=== PATIENT | male | born 1955 | race Caucasian/White ===

== ENCOUNTER 2018-05-01 20:46 | Inpatient (IN) | payer OTHER ==
[~2018-05-01] VITALS: Ht 172.7 cm; Wt 108.9 kg
[2018-05-01 20:49] VITALS: BP 168/85
[2018-05-01] MEDS ORDERED: OMEPRAZOLE40 MG PO (20:53)
[2018-05-01] MEDS ORDERED: FENOFIBRATE160 MG PO (20:54)
[2018-05-01] MEDS ORDERED: ALLOPURINOL 10100 M1 (20:54)
[2018-05-01 21:10] LABS: ABSOLUTE BASOPHILS 0.1 thou/uL (0.0-0.2); ABSOLUTE EOSINOPHILS 0.3 thou/uL (0.0-0.7); ABSOLUTE MONOCYTES 0.9 thou/uL (0.0-1.2); ABSOLUTE NEUTROPHILS 4.4 thou/uL (1.6-8.1); EOSINOPHILS 3.9 %; HEMATOCRIT 40.4 % (42.0-52.0); HEMOGLOBIN 13.5 gm/dL (14.0-18.0); LYMPHOCYTES 15.1 %; MCH 27.7 pg (26.0-34.0); MCHC 33.5 g/dL (28.0-37.0); MCV 82.7 fL (80.0-100.0); MONOCYTES 13.4 %; MPV 8.8 fl. (7.2-11.1); NUCLEATED RBCS 0 /100WBC; PLATELET COUNT* 169 thou/uL (150-400); POLYS 66.6 %; RBC 4.88 mil/uL (4.50-6.00); RDW-CV 15.1 % (10.5-14.5); WBC 6.6 thou/uL (4.0-11.0)
[2018-05-01 21:21] LABS: ANION GAP 9 mmol/L (7-16); BUN 17 mg/dL (7-18); CALCIUM 9.2 mg/dL (8.5-10.1); CHLORIDE 105 mmol/L (98-107); CO2 25 mmol/L (21-32); CREATININE 1.4 mg/dL (0.6-1.3); GLUCOSE 113 mg/dL (70-99); POTASSIUM 4.2 mmol/L (3.5-5.1); SODIUM 139 mmol/L (136-145)
[2018-05-01 21:26] LABS: APTT 23.1 Seconds (25.0-31.3)
[2018-05-01 21:31] LABS: ALBUMIN 3.7 g/dL (3.4-5.0); ALKALINE PHOSPHATASE 79 U/L (46-116); LIPASE 104 U/L (73-393); NT-PRO BRAIN NAT PEPTIDE 70 pg/mL (<300); SGOT 46 U/L (15-37); SGPT 87 U/L (30-65); TOTAL BILIRUBIN 0.4 mg/dL (<0.1-1.0); TOTAL PROTEIN 6.9 g/dL (6.4-8.2); TROPONIN-I LEVEL <0.06 ng/mL (<0.06)
[2018-05-02 01:20] VITALS: BP 128/74
[2018-05-02 01:50] VITALS: BP 136/84
[2018-05-02 05:33] VITALS: BP 115/63
--- NOTE | 2018-05-02 07:40 | NUR ---
PT TO FLOOR APROX 0150N AND ASSUMED CARE. A&O X4 CALM COOPERITVE. PT REPORTS PAIN A IRRITATION AND RATES IT AT A 2. RA. NPO. UP ADLIB. SB ON THE MONITOR. VITALS WNL. SEE. MAR. SEE CHARTING. HOURLY ROUNDING FOR SAFETY.
[2018-05-02 08:00] VITALS: BP 146/67
--- NOTE | 2018-05-02 10:35 | NUR ---
MET WITH PT AND TO DISCUSS HOME SITUATION/DC PLANNING. PT LIVES [place] . 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 DOESN'T USE ANY EQUIPIMENT. STATES IS HAVING SOME TESTS TODAY. DENIES ANY DC NEEDS. WILL FOLLOW
[2018-05-02 16:20] VITALS: BP 134/63
--- NOTE | 2018-05-02 17:05 | NUR ---
PT HAS RESTED IN HIS ROOM THIS SHIFT. PT HAD STRESS TEST TODAY. RESULTS PENDING. HE HAS HAD NO C/O PAIN OR DISCOMFORT. ASSUMED CARE OF PT THIS AM ASSESSED AND DOCUMENTED. SEE CHART. EDUCATION GIVEN ON DEMAND. HOURLY ROUNDING COMPLETE.
[2018-05-02] MEDS ORDERED: NORVASC10 MG PO (17:45)
--- NOTE | 2018-05-02 18:20 | 2DMMODE ---
[place] [address] 2 D/M-MODE ECHOCARDIOGRAM Name: DEANN FRANKS Room: [address] IN [facility]#: [id number] Admission: 05/01/18 Attend Phys: Saroj Banegas Discharge: Date of : 57 Date of Service: 05/02/18 1820 Report #: [id number] THIS REPORT FOR: //name// APPROVED REPORT Study performed: 05/02/2018 13:49:24 EXAM: Comprehensive 2D, Doppler, and color-flow Echocardiogram Patient Location: In-Patient Room #: [facility] Status: routine BSA: 2.21 HR: 56 bpm BP: 115/63 mmHg Rhythm: NSR Other Information Study Quality: Good Indications Chest Pain 2D Dimensions LVEF(%): 70.49 (>50%) IVSd: 12.15 (7-11mm) LVOT Diam: 22.07 (18-24mm) LVDd: 46.21 mm PWd: 11.32 (7-11mm) Ascending Ao: 28.76 (22-36mm) LVDs: 27.80 (25-40mm) Aortic Root: 29.47 mm Eller's LVEF: 70.49 % Volumes Left Atrial Volume (Systole) LA ESV Index: 31.60 mL/m2 Aortic Valve AoV Peak Aguila.: 1.19 m/s AO Peak Gr.: 5.62 mmHg LVOT Max P.69 mmHg AO Mean Gr.: 3.28 mmHg LVOT Mean P.86 mmHg LVOT Max V: 0.96 m/s AO V2 VTI: 24.56 cm LVOT Mean V: 0.63 m/s NILDA (VTI): 3.43 cm2 LVOT V1 VTI: 22.06 cm Mitral Valve E/A Ratio: 1.55 [place] [address] 2 D/M-MODE ECHOCARDIOGRAM Name: DEANN FRANKS Room: [address] IN ..#: [id number] Admission: 05/01/18 Attend Phys: Saroj Banegas Discharge: Date of : 57 Date of Service: 05/02/18 1820 Report #: [id number] MV Decel. Time: 182.33 ms MV E Max Aguila.: 0.67 m/s MV PHT: 52.88 ms MVA (PHT): 4.16 cm2 TDI E/Lateral E': 4.79 E/Medial E': 5.58 Medial E' Aguila.: 0.12 m/s Lateral E' Aguila.: 0.14 m/s Pulmonary Valve PV Peak Aguila.: 1.26 m/s PV Peak Gr.: 6.34 mmHg Tricuspid Valve TR Peak Gr.: 24.38 mmHg RVSP: 29.00 mmHg Left Ventricle The left ventricle is normal size. There is normal LV segmental wall motion. There is normal left ventricular wall thickness. Left ventricular systolic function is normal. The left ventricular ejection fraction is within the normal range. LVEF is 60%. The left ventricular diastolic function is normal. Right Ventricle The right ventricle is normal size. The right ventricular systolic function is normal. Atria The left atrium size is normal. The right atrium size is normal. Aortic Valve Mild aortic valve sclerosis. No aortic regurgitation is present. There is no aortic valvular stenosis. Mitral Valve The mitral valve is normal in structure. Trace mitral regurgitation. No evidence of mitral valve stenosis. Tricuspid Valve The tricuspid valve is normal in structure. Mild tricuspid regurgitation. The RVSP is ___29____ mmHg. Pulmonic Valve The pulmonary valve is normal in structure. There is no pulmonic [place] [address] 2 D/M-MODE ECHOCARDIOGRAM Name: DEANN FRANKS Room: [address] IN [facility]#: [id number] Admission: 05/01/18 Attend Phys: Saroj Banegas Discharge: Date of : 57 Date of Service: 05/02/18 1820 Report #: [id number] Great Vessels The aortic root is normal in size. IVC is not well visualized. Pericardium There is no pericardial effusion. <Conclusion> The left ventricle is normal size. There is normal left ventricular wall thickness. Left ventricular systolic function is normal. The left ventricular ejection fraction is within the normal range. LVEF is 60%. The left ventricular diastolic function is normal. The right ventricle is normal size. The left atrium size is normal. Mild aortic valve sclerosis. No aortic regurgitation is present. There is no aortic valvular stenosis. The mitral valve is normal in structure. Trace mitral regurgitation. The tricuspid valve is normal in structure. Mild tricuspid regurgitation. The RVSP is ___29____ mmHg. There is no pericardial effusion. There is normal LV segmental wall motion. <ELECTRONICALLY SIGNED> By: Geovany Basurto MD, FACC 05/02/181819 19 19 Geovany Basurto MD, FACC /INF
[2018-05-02 20:00] VITALS: BP 140/63
[2018-05-03] VITALS: BP 109/57
[2018-05-03 04:00] VITALS: BP 114/59
--- NOTE | 2018-05-03 05:19 | NUR ---
PATIENT RESTED IN BED, NO ACUTE CHANGES. PATIENT DID NOT COMPLAIN OF CHEST PAIN. PATIENT DID NOT SHOW SIGNS OF DISTRESS. HOURLY ROUNDING OBSEVERED, CALL LIGHT WITHIN REACH, BED ALARM ON, FALL PRECAUTIONS IN PLACE.
[2018-05-03 08:00] VITALS: BP 133/75
--- NOTE | 2018-05-03 09:56 | CARDNUC ---
[place] [address] CARDIAC NUCLEAR IMAGING REPORT Name: DEANN FRANKS Room: [address] IN [facility]#: [id number] Admission: 05/01/18 Attend Phys: Saroj Banegas Discharge: Date of : 57 Date of Service: 05/03/18 0956 Report #: [id number] THIS REPORT FOR: //name// APPROVED REPORT Imaging Protocol: Stress Tc-99m/Rest Tc-99m 2 days Study performed: 05/02/2018 09:12:00 Indication: Chest pain, Dyspnea Patient Location: In-Patient Room #: 218 Stress Tech: Lydia Angeles Stress Nurse: Anna Jones RN NM Tech:ALYSSA Mitchell Ht: 5 ft 8 in Wt: 240 lbs BSA: 2.21 m2 BMI: 36.48 Medical History Medical History: hyperlipidemia, hypertension Medications: none Allergies: nkda Cardiac Risk Factors: age, hyperlipidemia, hypertension, family hx Previous Cardiac Procedures: none Exercise History: Physically active Resting Data Rest SPECT myocardial perfusion imaging was performed in supine position 30 minutes following the intravenous injection of 39.2 mCi of Tc-99m Sestamibi. Time of rest injection: 709 Date: 05/03/2018 Time of rest imagin The images were gated to evaluate regional wall motion and calculate left ventricular ejection fraction. Administration Route: IV Administration Site: Right AC Pharmacologic Stress Pharmacologic stress test was performed by injecting Regadenoson 0.4 mg IV push over 10-15 seconds immediately followed by the intravenous injection of 42 mCi of Tc-99m Sestamibi. Time of stress injection: 1145 Date: 05/02/2018 Time of stress imagin Administration Route: [place] [address] CARDIAC NUCLEAR IMAGING REPORT Name: DEANN FRANKS Room: [address]#: [id number] Admission: 05/01/18 Attend Phys: Saroj Banegas Discharge: Date of : 57 Date of Service: 05/03/18 0956 Report #: [id number] Gated Stress SPECT was performed 40 minutes after stress injection. The images were gated to evaluate regional wall motion and calculate left ventricular ejection fraction. Prone imaging was performed. Stress Test Details Stress Test: Pharmacologic stress was paired with low level exercise. Reason for pharmacologic stress test: physical limitation. HR Resting HR: 52 bpm Max Heart Rate (APMHR): 159 bpm Max HR Achieved: 102 bpm Target HR (85% APMHR): 135 bpm % of APMHR: 64 Recovery HR: 68 bpm BP Resting BP: 142/77 mmHg Max BP: 194/77 mmHg ECG Resting ECG: Sinus Rhythm Stress ECG: Sinus Rhythm ST Change: None Arrhythmia: None Recovery ECG: Sinus Rhythm Recovery ST Change: None Recovery Arrhythmia: None Clinical Reason for Termination: Completed protocol Stress Symptoms: none Exercise duration: 0 min sec Exercise capacity: 1 METs Functional Aerobic Impairment 64% The patient had no significant symptoms with Lexiscan infusion. Stress ECG Conclusion The baseline 12-lead electrocardiogram showed sinus rhythm without significant ST or T wave abnormality. EKGs obtained during and post Lexiscan infusion showed sinus rhythm with no significant ST or T wave changes when compared to baseline. There were no stress[place] [address] CARDIAC NUCLEAR IMAGING REPORT Name: DEANN FRANKS Room: [address]#: [id number] Admission: 05/01/18 Attend Phys: Saroj Banegas Discharge: Date of : 57 Date of Service: 05/03/18 0956 Report #: [id number] Study Quality Study: Good Artifact: Mild apical thinning Study Data At rest, the left ventricular ejection fraction was 58%.. Post stress, the left ventricular ejection was 66%.. TID = 0.89. Perfusion Myocardial perfusion images obtained at rest and post stress in the supine position show a focal apical defect of mild intensity that resolves with prone imaging suggesting apical thinning artifact. No other significant defects were identified. Wall Motion Normal left ventricular wall motion. Nuclear Conclusion ECG Findings: negative for ischemia Clinical Findings: negative for ischemia Nuclear Findings: negative for ischemia Exercise Capacity: not assessed Left Ventricular Function: normal Risk Study: low Myocardial perfusion images show no defect to suggest ischemia. Focal apical defect resolves with prone imaging suggesting apical thinning artifact. Left ventricular systolic function is normal. This is a low risk study. <Conclusion> The baseline 12-lead electrocardiogram showed sinus rhythm without significant ST or T wave abnormality. EKGs obtained during and post Lexiscan infusion showed sinus rhythm with no significant ST or T wave changes when compared to baseline. There were no stress-induced arrhythmias. <ELECTRONICALLY SIGNED> By: Adam Jacobs MD, FACC 05/03/18 0956 Adam Jacobs MD, FACC /INF
--- NOTE | 2018-05-03 10:22 | NUR ---
RECEIVED REPORT AND ASSUMED CARE AT 0700. VSS. CARDIAC MONITORING IN PLACE. PT DENIES ANY COMPLAINTS OF PAIN. ASSESSMENT COMPLETED CHARTED. DISCUSSED PLAN OF CARE WITH PT, VERBALIZED UNDERSTANDING. PT SCHEDULED FOR STRESS TEST THIS MORNING. PT UP AD JANAE ON RM, ON RA. BED IN LOWEST POSITION, CALL LIGHT WITHIN REACH. WILL CONTINUE TO MONITOR FOR REMAINDER OF THE SHIFT
[2018-05-03 11:34] VITALS: BP 176/86
--- NOTE | 2018-05-03 12:36 | EKG ---
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
--- NOTE | 2018-05-03 12:39 | EKG ---
[place] [address] ELECTROCARDIOGRAM REPORT Name: DEANN FRANKS Room: [address] IN 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 05/03/18 1238 2326 2326 Ace Gamble MD, FACC /EPI
[2018-05-03 14:35] VITALS: BP 176/86
[2018-05-03 15:06] VITALS: BP 138/78
== END 2018-05-03 15:23 | disposition home or self-care (01) | DRG 392 ==
LOC: M.ERS 20:46 → M.TBA-ER 23:05 → M.2W 23:05
PROVIDERS: Personal Emergency Response Attendant; ADMIT Internal Medicine
DX: K21.9 Gastro-esophageal reflux disease without esophagitis (principal); Z96.641 Presence of right artificial hip joint; E78.5 Hyperlipidemia, unspecified; M10.9 Gout, unspecified; I12.9 Hypertensive chronic kidney disease with stage 1 through stage 4 chronic kidney disease, or unspecified chronic kidney disease; N18.3 Chronic kidney disease, stage 3 (moderate); I25.10 Atherosclerotic heart disease of native coronary artery without angina pectoris; K76.0 Fatty (change of) liver, not elsewhere classified; E66.9 Obesity, unspecified; Z68.36 Body mass index [BMI] 36.0-36.9, adult; Z82.49 Family history of ischemic heart disease and other diseases of the circulatory system; Z79.899 Other long term (current) drug therapy

== ENCOUNTER → 2018-05-13 | Outpatient (CLI) | payer OTHER ==
[~2018-05-13] MED LIST: ALLOPURINOL 10100 M1; FENOFIBRATE160 MG PO; NORVASC10 MG PO; OMEPRAZOLE40 MG PO
--- NOTE | 2018-05-14 12:05 | PATH ---
[address] [address] PATHOLOGY RPT PROCEDURE Name: DEANN FRANKS Room: [facility]#: [id number] Admission: 05/13/18 Date of : 57 Discharge: Report #: [id number] Path Case #: [id number] Note [facility] Accession Number: [id number] TESTS RESULT FLAG UNITS REF RANGE LAB Clinician Provided Cytology Information No. of containers..01 Other (Miscellaneous) Source: RT THYROID W/RNA RET DIAGNOSIS: RT THYROID W/RNA RET NEGATIVE FOR MALIGNANT CELLS. B[place]ES[place] CATEGORY II. SPECIMEN CONSISTS OF BENIGN FOLLICULAR CELLS, HEMOSIDERIN-LADEN MACROPHAGES, COLLOID, AND BLOOD. THIS PATTERN IS CONSISTENT WITH A COLLOID NODULE. Pathologist ICD10: 02 E04.1 Signed out by: 02 Ángel Kern MD, Pathologist NPI- [id number] Performed by: Hermelindo Bradford, Beauty Operator Apprentice ([facility]) Gross description: 01 15ML, RED, CLOUDY /LCS FLAG LEGEND: L-Low Normal,H-High Normal,LL-Alert Low,HH-Alert High <-Panic Low,>-Panic High,A-Abnormal,AA-Critical Abnormal Performed at: [address] [address] Jose Alexander MD, [address] [address] Ángel Kern MD, Performed at: [place] [address], [place], [place] [id number] MD Jose Alexander MD Phone: [phone]
== END | disposition home or self-care (01) ==
LOC: M.ULTRA 07:43
DX: E04.1 Nontoxic single thyroid nodule (principal); I10 Essential (primary) hypertension; Z79.899 Other long term (current) drug therapy